=== PATIENT | female | born 1980 | race Caucasian/White ===

== ENCOUNTER 2017-02-02 05:00 | Inpatient (IN) | payer OTHER ==
[2017-02-02] MEDS ORDERED: ZOFRAN IV PRN (05:02)
[2017-02-02] MEDS ORDERED: PEPCID IV PRN (05:02)
[2017-02-02] MEDS ORDERED: LR 500 ML IV ONE (05:02)
[2017-02-02] MEDS ORDERED: TYLENOL PO PRN (05:02)
[2017-02-02] MEDS ORDERED: REGLAN PO ONE (05:02)
[2017-02-02] MEDS ORDERED: PEPCID PO PRN (05:02)
[2017-02-02] MEDS ORDERED: KEFZOL 1 GM/D5W 50 ML IV PRN (05:02)
[2017-02-02] MEDS ORDERED: STADOL IV PRN (05:02)
[2017-02-02] MEDS ORDERED: PEPCID PO ONE (05:02)
[2017-02-02] MEDS ORDERED: SODIUM CHLORIDE 0.9% INJ SCH (05:15)
[2017-02-02] MEDS ORDERED: LR 1,000 ML IV SCH (05:15)
[2017-02-02] MEDS ORDERED: PITOCIN 30 UNITS/LR 500 ML IV SCH (05:15)
[2017-02-02 05:50] LABS: MANUAL DIFF NEEDED? NO; URINE SOURCE VOIDED
[2017-02-02 05:51] LABS: BASO% 0.2 % (0.0-0.8); EOS# 0.09 X1000 (0.0-0.7); HEMATOCRIT 36.2 % (37.0-47.0); HEMOGLOBIN 12.6 g/dL (12.0-16.0); IMM GRAN# 0.02 X1000 (0.0-0.04); IMM GRAN% 0.2 % (0.0-0.5); LYMPH# 2.21 X1000 (1.2-3.4); LYMPH% 23.5 % (20.5-51.1); MCH 31.3 PG (27-31); MCHC 34.8 g/dL (33-37); MONO% 8.5 % (1.7-9.3); MPV 9.5 FL (7.4-10.4); NEUT% 66.6 % (42.2-75.2); PLT 191 X1000 (130-400); RBC 4.02 XMIL (4.2-5.4)
[2017-02-02 06:01] LABS: BILIRUBIN URINE NEGATIVE (NEGATIVE); BLOOD URINE NEGATIVE (NEGATIVE); CLARITY SL. CLOUDY (CLEAR); COLOR YELLOW; GLUCOSE URINE NEGATIVE (NEGATIVE); LEUKOCYTES URINE NEGATIVE (NEGATIVE); NITRITE URINE NEGATIVE (NEGATIVE); PROTEIN URINE NEGATIVE (NEGATIVE); SP GRAVITY URINE 1.015; UROBILINOGEN URINE NORMAL
[2017-02-02] MEDS ORDERED: NAROPIN 0.2% EPIDURAL PRN (08:43)
[2017-02-02] MEDS ORDERED: XYLOCAINE-MPF 1% INJ ONE (08:45)
[2017-02-02] MEDS ORDERED: XYLOCAINE-MPF 1% ONE (11:38)
[2017-02-02] MEDS ORDERED: BENADRYL IV PRN (14:11)
[2017-02-02] MEDS ORDERED: BENADRYL PO PRN (14:11)
[2017-02-02] MEDS ORDERED: XYLOCAINE-MPF 1% INJ PRN (14:11)
[2017-02-02] MEDS ORDERED: NORCO-5 PO PRN (14:11)
[2017-02-02] MEDS ORDERED: HYDROXYZINE IM PRN (14:11)
[2017-02-02] MEDS ORDERED: HYDROXYZINE PO PRN (14:11)
[2017-02-02] MEDS ORDERED: BOOSTRIX VACCINE IM ONE (14:11)
[2017-02-02] MEDS ORDERED: PITOCIN 30 UNITS/LR 500 ML IV ONE (14:11)
[2017-02-02] MEDS ORDERED: M-M-R II VACCINE SUBQ ONE (14:11)
[2017-02-02] MEDS ORDERED: PITOCIN IM PRN (14:11)
[2017-02-02] MEDS ORDERED: CYTOTEC PO PRN (14:11)
[2017-02-02] MEDS ORDERED: MINERAL OIL MISC PRN (14:11)
[2017-02-02] MEDS ORDERED: PERI MEDS (DERMOPLAST/NUPERCAINAL/TUCKS) MISC PRN (14:11)
[2017-02-02] MEDS ORDERED: AMBIEN PO PRN (14:11)
[2017-02-02] MEDS ORDERED: PITOCIN 20 UNITS/LR 1,000 ML IV SCH (14:15)
[2017-02-02] MEDS ORDERED: MOTRIN ONE (14:34)
[2017-02-02] MEDS: NORCO-10 PO PRN ×2 (14:42→18:48)
[2017-02-02] MEDS: MOTRIN PO PRN (14:48)
--- NOTE | 2017-02-02 15:20 | OPERATIVE NOTE ---
PROCEDURE DATE: 02/02/2017 PREDELIVERY DIAGNOSES: 1. Intrauterine at term. 2. Advanced maternal age. 3. Rubella nonimmune. 4. Herpes simplex virus positive. POST DELIVERY DIAGNOSES: 1. Intrauterine at term. 2. Advanced maternal age. 3. Rubella nonimmune. 4. Herpes simplex virus positive. PROCEDURE: Vaginal delivery. PHYSICIAN: Sid Vences MD ANESTHESIA: Epidural with Dr. Bernard. FINDINGS: Viable male infant, occiput anterior. Placenta cord normal. Primary midline laceration, no repair. ESTIMATED BLOOD LOSS: 100 mL. COUNTS: All counts correct. DELIVERY SUMMARY: Ms Alcocer is a 36-year-old, at 39-1/2 with the above diagnoses, who presents for labor induction. She was artificially ruptured, started on Pitocin, and received epidural anesthesia. She made progress without distress or dystocia, began pushing. Soon after crowned, at which point the bed was broken down. With continued pushing, she delivered a viable male infant, occiput anterior, over a primary midline laceration. The infant was placed on mother's abdomen. Cord doubly clamped and cut and care of taken over by Nursery Personnel. The cord was inspected found to be 3 vessels. Cord blood was obtained. Then gentle traction on the cord resulted in the delivery of an intact placenta after approximately 3 minutes. It was discarded. Vaginal sweep did not reveal any foreign material or clots. There was a small primary midline laceration, no repair needed. Counts correct. Estimated blood loss 100 mL. Routine .
[2017-02-02] MEDS: PERICOLACE PO SCH (20:15)
[2017-02-03] MEDS: NORCO-10 PO PRN ×4 (00:32→19:37)
[2017-02-03] MEDS: MOTRIN PO PRN ×3 (00:33→19:37)
[2017-02-03 06:09] LABS: MANUAL DIFF NEEDED? NO
[2017-02-03 06:21] LABS: BASO% 0.2 % (0.0-0.8); EOS# 0.13 X1000 (0.0-0.7); EOS% 1.5 % (0.0-10.0); HEMATOCRIT 31.6 % (37.0-47.0); HEMOGLOBIN 10.8 g/dL (12.0-16.0); IMM GRAN# 0.05 X1000 (0.0-0.04); IMM GRAN% 0.6 % (0.0-0.5); LYMPH# 2.71 X1000 (1.2-3.4); LYMPH% 30.8 % (20.5-51.1); MCH 31.9 PG (27-31); MCHC 34.2 g/dL (33-37); MCV 93.2 FL (81-99); MONO# 0.76 X1000 (0.11-0.59); MONO% 8.6 % (1.7-9.3); MPV 10.1 FL (7.4-10.4); NEUT% 58.3 % (42.2-75.2); PLT 170 X1000 (130-400); RBC 3.39 XMIL (4.2-5.4)
[2017-02-03] MEDS: VALTREX PO SCH (08:57)
[2017-02-03] MEDS: PRECARE PO SCH (08:57)
[2017-02-03] MEDS: PERICOLACE PO SCH (19:37)
[2017-02-04] MEDS: NORCO-10 PO PRN ×2 (04:40→08:23)
[2017-02-04 08:16] VITALS: BP 138/74
[2017-02-04] MEDS: MOTRIN PO PRN (08:23)
[2017-02-04] MEDS: VALTREX PO SCH (08:23)
[2017-02-04] MEDS: PRECARE PO SCH (08:23)
== END 2017-02-04 10:40 | disposition home or self-care (01) | DRG 774 ==
LOC: P.LD 05:00 → P.WC 16:01
PROVIDERS: ADMIT Obstetrics & Gynecology; ATTEND Obstetrics & Gynecology
PROC: 10E0XZZ Delivery of Products of Conception, External Approach (ICD-10-PCS; principal; 2017-02-02)
PROC: 10907ZC Drainage of Amniotic Fluid, Therapeutic from Products of Conception, Via Natural or Artificial Opening (ICD-10-PCS; 2017-02-02)
PROC: 3E033VJ Introduction of Other Hormone into Peripheral Vein, Percutaneous Approach (ICD-10-PCS; 2017-02-02)
DX: O98.52 Other viral diseases complicating childbirth (principal); E66.9 Obesity, unspecified; B00.9 Herpesviral infection, unspecified; Z37.0 Single live birth; O99.214 Obesity complicating childbirth; Z3A.39 39 weeks gestation of pregnancy; Z28.3 Underimmunization status; O70.0 First degree perineal laceration during delivery
CPT/HCPCS: 59025; 81003; 85025; 86592; J2590; J2795; J7120; S0028